=== PATIENT | female | born 1985 | race Two or more races ===

== ENCOUNTER 2019-10-28 14:06 | Observation (INO) | payer MEDICAID ==
[2019-10-28] MEDS ORDERED: PREN-96 PO (15:07)
== END 2019-10-28 15:30 | disposition home or self-care (01) | DRG 566 ==
LOC: LDRP 14:06
PROVIDERS: ADMIT Obstetrics & Gynecology; ATTEND Obstetrics & Gynecology
DX: O26.892 Other specified pregnancy related conditions, second trimester (principal); R10.2 Pelvic and perineal pain; Z3A.23 23 weeks gestation of pregnancy
CPT/HCPCS: 81002; G0378

== ENCOUNTER 2020-01-21 15:51 | Observation (INO) | payer MEDICAID ==
[~2020-01-21] VITALS: Ht 152.4 cm; Wt 73.5 kg
[~2020-01-21 15:51] MED LIST: PREN-96 PO
[2020-01-21] MEDS ORDERED: LACTATED RINGER'S 1,000 ML IV SCH (16:22)
[2020-01-21] MEDS ORDERED: TERBUTALINE SULFATE 1 MG/ML 1ML VIAL SC ONE (16:33)
[2020-01-21] MEDS: TERBUTALINE SULFATE 1 MG/ML 1ML VIAL SC SCH ×2 (16:35→18:52)
[2020-01-21] MEDS ORDERED: BETAMETHASONE ACET (6MG/ML) 5ML VIAL IM ONE (17:00)
[2020-01-22] MEDS ORDERED: BETAMETHASONE ACET (6MG/ML) 5ML VIAL IM SCH (10:00)
== END 2020-01-21 19:43 | disposition home or self-care (01) ==
LOC: LDRP 15:51
PROVIDERS: ADMIT Specialist; ATTEND Specialist
DX: O26.893 Other specified pregnancy related conditions, third trimester (principal); R10.2 Pelvic and perineal pain; M54.9 Dorsalgia, unspecified; O62.9 Abnormality of forces of labor, unspecified; Z3A.35 35 weeks gestation of pregnancy
CPT/HCPCS: 59025; 76818; 81002; 96360; 96361; 96372; G0378; J0702; J3105

== ENCOUNTER 2020-01-22 16:05 | Observation (INO) | payer MEDICAID ==
[2020-01-22] MEDS ORDERED: BETAMETHASONE ACET (6MG/ML) 5ML VIAL IM ONE (16:15)
== END 2020-01-22 17:06 | disposition home or self-care (01) ==
LOC: LDRP 16:05
PROVIDERS: ADMIT Specialist; ATTEND Specialist
DX: O60.03 Preterm labor without delivery, third trimester (principal); Z3A.36 36 weeks gestation of pregnancy
CPT/HCPCS: 59025; 81002; 96372; G0378; J0702

== ENCOUNTER 2020-01-27 11:07 | Observation (INO) | payer MEDICAID | END 2020-01-27 13:40 | disposition home or self-care (01) | LOC: LDRP 11:07 | PROVIDERS: ADMIT Specialist; ATTEND Specialist | DX: O60.03 Preterm labor without delivery, third trimester (principal); O30.003 Twin pregnancy, unspecified number of placenta and unspecified number of amniotic sacs, third trimester; Z3A.36 36 weeks gestation of pregnancy | CPT/HCPCS: 59025; 76818; 81002; G0378 ==

== ENCOUNTER 2020-01-28 10:22 | Observation (INO) | payer MEDICAID | END 2020-01-28 11:53 | disposition home or self-care (01) | LOC: LDRP 10:22 | PROVIDERS: ADMIT Specialist; ATTEND Specialist | DX: O60.03 Preterm labor without delivery, third trimester (principal); O62.9 Abnormality of forces of labor, unspecified; Z3A.36 36 weeks gestation of pregnancy | CPT/HCPCS: 59025; 76818; 81002; G0378 ==

== ENCOUNTER 2020-02-06 17:15 | Observation (INO) | payer MEDICAID ==
[2020-02-06] MEDS ORDERED: LACTATED RINGER'S 1,000 ML IV ONE ×2 (18:30→20:15)
[2020-02-06] MEDS ORDERED: LACTATED RINGER'S 1,000 ML IV SCH (20:45)
[2020-02-06] MEDS ORDERED: ALUM & MAG HYDROX-SIMETH LIQ(MAALOX) 30 ML PO PRN (20:45)
[2020-02-06] MEDS ORDERED: MILK OF MAGNESIA 30ML SUSP PO ONE (20:58)
[2020-02-06] MEDS ORDERED: MILK OF MAGNESIA 30ML SUSP PO PRN (21:00)
== END 2020-02-07 04:50 | disposition home or self-care (01) ==
LOC: LDRP 17:15
PROVIDERS: ADMIT Specialist; ATTEND Specialist
DX: O62.9 Abnormality of forces of labor, unspecified (principal); N89.8 Other specified noninflammatory disorders of vagina; R10.9 Unspecified abdominal pain; M54.9 Dorsalgia, unspecified; Z3A.38 38 weeks gestation of pregnancy
CPT/HCPCS: 59025; 81002; 96360; 96361; G0378

== ENCOUNTER 2020-02-09 10:10 | Outpatient (CLI) | payer MEDICAID | END 2020-02-09 10:38 | disposition home or self-care (01) | LOC: LDRP 10:10 → OB 10:10 → UNDOADMOB 10:10 → OB 10:38 → UNDODISOB 10:38 → EDSTATUS 02-15 14:23 | PROVIDERS: ATTEND Obstetrics & Gynecology | DX: Z20.828 Contact with and (suspected) exposure to other viral communicable diseases (principal) | CPT/HCPCS: G0378 ==

== ENCOUNTER 2020-02-14 04:13 | Inpatient (IN) | payer MEDICAID ==
[~2020-02-14] VITALS: Ht 152.4 cm; Wt 73.5 kg
[2020-02-14] VITALS (13 sets, daily range): BP systolic 111–142; BP diastolic 60–83
[2020-02-14] MEDS ORDERED: LACTATED RINGER'S 1,000 ML IV SCH (04:20)
[2020-02-14] MEDS ORDERED: LACTATED RINGER'S 1,000 ML IV ONE (04:20)
[2020-02-14 05:50] LABS: Basophils # (auto) 0 10 ^3/uL (0-0.2); Basophils % (auto) 0.3 % (0.0-2.0); Eosinophils # (auto) 0.1 10 ^3/uL (0-0.8); Eosinophils % (auto) 0.7 % (0.0-7.0); Hematocrit 36.4 % (36.0-46.0); Lymphocytes # (auto) 2.2 10 ^3/uL (0.4-5.4); Lymphocytes % (auto) 32.1 % (10.0-50.0); Mean Corpuscular Hemoglobin 29.8 pg (28.0-32.0); Mean Corpuscular Hgb Conc. 32.9 g/dL (32.0-36.0); Mean Corpuscular Volume 90.6 fL (80.0-100.0); Monocytes # (auto) 0.5 10 ^3/uL (0-1.3); Monocytes % (auto) 7.1 % (0.0-12.0); Neutrophils # (auto) 4.1 10 ^3/uL (1.6-8.6); Neutrophils % (auto) 59.8 % (37.0-80.0); Nucleated Red Blood Cells % 0.2 %; Platelet Count (auto) 153 10^3/uL (140-450); Red Blood Cells 4.02 10^6/uL (4.0-5.20); Red Cell Distribution Width 14.6 % (11.8-14.3); White Blood Cell 6.9 10^3/uL (4.4-10.8)
[2020-02-14 05:50] LABS: Urine Bacteria FEW /hpf (None Seen); Urine Blood Negative /uL (Negative); Urine Mucus FEW (None Seen); Urine Specific Gravity 1.014 (1.001-1.035); Urine WBC 41 /hpf (0 - 5)
[2020-02-14 06:08] LABS: Potassium 3.9 mmol/L (3.5-5.1)
[2020-02-14 06:19] LABS: Alcohol, Urine < 3.0 mg/dL (0-10); Amphetamine Screen, Urine NEGATIVE (NEGATIVE); Barbiturate Scree,Urine NEGATIVE (NEGATIVE); Benzodiazephine Screen, Urine NEGATIVE (NEGATIVE); Cannabinoid Screen, Urine NEGATIVE (NEGATIVE); Cocaine Screen, Urine NEGATIVE (NEGATIVE); Opiate Scree,Urine NEGATIVE (NEGATIVE); Phencyclidine Screen, Urine NEGATIVE (NEGATIVE)
[2020-02-14 06:19] LABS: Albumin 2.4 g/dL (3.4-5.0); BUN/Creatinine Ratio 13.7; Bilirubin, Total 0.3 mg/dL (0.2-1.0); Calcium 8.9 mg/dL (8.5-10.1)
[2020-02-14 06:26] LABS: INR 0.98 (0.9-1.15); Partial Thromboplastin Time 29.9 sec (23.0-31.2)
[2020-02-14] MEDS ORDERED: LIDOCAINE 1% HCL (LOCAL ANESTH.) INJ 20ML MDV ONE (07:03)
[2020-02-14] MEDS ORDERED: SUCCINYLCHOLINE CHLORIDE 20 MG/ML 10ML VIAL IV ONE (07:03)
[2020-02-14] MEDS ORDERED: TETRACAINE 1% INJ 2 ML VIAL IJ ONE ×2 (07:03→07:08)
[2020-02-14] MEDS ORDERED: MORPHINE SULF(PF) 0.5MG/ML 10ML VIAL ONE (07:06)
[2020-02-14] MEDS ORDERED: BUPIVACAINE/DEXTROSE MPF 0.75% 2 ML AMP IT ONE (07:06)
[2020-02-14] MEDS ORDERED: ONDANSETRON HCL 4 MG/2 ML VIAL ONE (07:06)
[2020-02-14] MEDS ORDERED: MIDAZOLAM HCL 1MG/1ML-2 ML VIAL ONE (07:06)
[2020-02-14] MEDS ORDERED: SODIUM CHLORIDE LOCK 10 ML ONE (07:06)
[2020-02-14] MEDS ORDERED: oxyTOCIN 10 UNIT/ML 10ML VIAL ONE (07:06)
[2020-02-14] MEDS ORDERED: fentaNYL CITRATE 100 MCG/2 ML VL ONE (07:06)
[2020-02-14] MEDS ORDERED: EPINEPHrine HCL 1 MG/1 ML AMP ONE (07:06)
[2020-02-14] MEDS ORDERED: ceFAZolin 1GM VL ONE (07:06)
[2020-02-14] MEDS ORDERED: GUM (CHEWING) 1 GUM CHEW CHEW ONE (09:15)
[2020-02-14] MEDS ORDERED: RHO (D) IMMUNE GLOBULIN 300 MCG INJ IM ONE (09:15)
[2020-02-14] MEDS ORDERED: ceFAZolin 1GM/50ML 50 ML IV SCH (09:15)
[2020-02-14] MEDS ORDERED: ACETAMINOPHEN IV 1000 MG/100ML (10MG/ML) IV PRN (09:15)
[2020-02-14] MEDS ORDERED: HYDROmorphone HCL 2 MG/ML VL IV PRN ×2 (09:15→09:30)
[2020-02-14] MEDS ORDERED: ONDANSETRON HCL 4 MG/2 ML VIAL IV PRN ×2 (09:15→09:30)
[2020-02-14] MEDS ORDERED: NALOXONE HCL 0.4 MG/ML VIAL IV PRN (09:30)
[2020-02-14] MEDS ORDERED: METOCLOPRAMIDE HCL 5MG/ml INJ 2ml VIAL IV PRN (09:30)
[2020-02-14] MEDS ORDERED: KETOROLAC TROMETH 30 MG/ML 1ML VIAL IV ONE (09:30)
[2020-02-14] MEDS ORDERED: MORPHINE SULFATE 4 MG/ML SYR/VIAL IV PRN (09:30)
--- NOTE | 2020-02-14 10:00 | NUR ---
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 Fundus firm 1 above u moderate bleeding with small clots noted, incision dry and intact. Vital signs within normal limits will continue to monitor.
[2020-02-14] MEDS: KETOROLAC TROMETH 30 MG/ML 1ML VIAL IV PRN (15:24)
[2020-02-14] MEDS: LACTATED RINGER'S 1,000 ML IV SCH ×3 (15:29→20:00)
[2020-02-14] MEDS: ceFAZolin 1GM/50ML 50 ML IV SCH (16:14)
--- NOTE | 2020-02-14 19:00 | NUR ---
Teaching: Reviewed information in [facility] booklet with patient. Discussed benefits of and risks associated with not . Discussed different positions, proper latch, feeding cues, and baby-led . Provided information of medication side effects related to . All questions and concerns addressed at this time. Patient verbalized understanding of information.
--- NOTE | 2020-02-14 23:00 | NUR ---
Ambulation of patient to bedside chair: Clean gown and Pericare in bed with teaching provided. Amin catheter remains intact no kinks, hung below bladder, draining yellow urine . Active bowel sounds. ABD incision dressing removed, chidi remain intact. Incision site with no redness edema or draining, slight moisture, cool to touch peripad placed over incision supported with underwear, reapplied ABD binder. Fundus firm at U with small amount of bleeding. Patient out of bed with standby assistance by RN x2 to bedside chair. Complete linen changed. Ice chips provided. Educated patient about S/S of PPH and to call for assistance, patient verbalized understanding. Patient remains in chair, call light within reach no S/S of distress.
[2020-02-15] MEDS: ceFAZolin 1GM/50ML 50 ML IV SCH ×2 (00:30→08:25)
[2020-02-15] MEDS: KETOROLAC TROMETH 30 MG/ML 1ML VIAL IV PRN (02:59)
[2020-02-15 03:00] VITALS: BP 116/75
[2020-02-15 04:08] LABS: RPR Non Reactive (Non Reactive)
--- NOTE | 2020-02-15 05:20 | NUR ---
Cortez catheter dc'd Order to discontinue cortez catheter. Cortez dc'd with clean technique following deflation of balloon. Patient tolerated well with no complaints of pain. Continue care.
[2020-02-15 06:48] LABS: Basophils # (auto) 0 10 ^3/uL (0-0.2); Basophils % (auto) 0.1 % (0.0-2.0); Eosinophils # (auto) 0.1 10 ^3/uL (0-0.8); Eosinophils % (auto) 1.1 % (0.0-7.0); Hemoglobin 10.6 g/dL (12.2-16.2); Lymphocytes # (auto) 1.3 10 ^3/uL (0.4-5.4); Lymphocytes % (auto) 17.3 % (10.0-50.0); Mean Corpuscular Hemoglobin 29.9 pg (28.0-32.0); Mean Corpuscular Hgb Conc. 33.1 g/dL (32.0-36.0); Mean Corpuscular Volume 90.4 fL (80.0-100.0); Monocytes # (auto) 0.4 10 ^3/uL (0-1.3); Monocytes % (auto) 5.6 % (0.0-12.0); Neutrophils # (auto) 5.9 10 ^3/uL (1.6-8.6); Neutrophils % (auto) 75.9 % (37.0-80.0); Nucleated Red Blood Cells % 0.2 %; Platelet Count (auto) 151 10^3/uL (140-450); Red Blood Cells 3.54 10^6/uL (4.0-5.20); Red Cell Distribution Width 14.7 % (11.8-14.3); White Blood Cell 7.7 10^3/uL (4.4-10.8)
[2020-02-15 06:50] VITALS: BP 118/76
[2020-02-15] MEDS ORDERED: HYDROcodone-ACET 5/325MG TAB PO PRN (07:30)
[2020-02-15] MEDS ORDERED: BISACODYL 10 MG RECT SUPP PR PRN (07:30)
[2020-02-15] MEDS: IBUPROFEN 800 MG TAB PO PRN ×2 (08:31→16:30)
[2020-02-15] MEDS: LACTATED RINGER'S 1,000 ML IV SCH (09:04)
[2020-02-15] MEDS: DOCUSATE SOD 100 MG CAP PO SCH ×2 (09:30→22:57)
[2020-02-15] MEDS ORDERED: DOCUSATE CALCIUM 240 MG CAP PO SCH (10:00)
[2020-02-15 10:30] VITALS: BP 116/73
[2020-02-15] MEDS: SIMETHICONE 80 MG CHEWABLE TABLET PO SCH ×3 (11:44→22:57)
[2020-02-15] MEDS: HYDROcodone-ACET 5/325MG TAB PO PRN ×2 (11:46→22:56)
[2020-02-15 15:30] VITALS: BP 117/68
[2020-02-15 19:15] VITALS: BP 118/79
[2020-02-15 22:59] VITALS: BP 113/63
[2020-02-16 03:00] VITALS: BP 108/89
[2020-02-16] MEDS: IBUPROFEN 800 MG TAB PO PRN ×3 (03:30→19:18)
[2020-02-16] MEDS: SIMETHICONE 80 MG CHEWABLE TABLET PO SCH ×4 (06:15→22:26)
[2020-02-16 07:00] VITALS: BP 114/65
[2020-02-16] MEDS: HYDROcodone-ACET 5/325MG TAB PO PRN ×2 (09:46→17:48)
[2020-02-16] MEDS: DOCUSATE SOD 100 MG CAP PO SCH ×2 (09:47→22:26)
[2020-02-16 11:00] VITALS: BP 121/72
[2020-02-16 15:00] VITALS: BP 107/61
--- NOTE | 2020-02-16 15:09 | NUR ---
IV removal IV DC'd in right hand with clean sterile technique, catheter fully intact. Pressure dressing applied to site. Patient tolerated well. NOTE:
[2020-02-16 23:00] VITALS: BP 111/66
--- NOTE | 2020-02-17 02:25 | NUR ---
Pt had a bowel movement moderate amount soft. Addendum: 02/17/20 at 0231 by BORIS BOBBY RN RN Amended: Links added.
[2020-02-17] MEDS: HYDROcodone-ACET 5/325MG TAB PO PRN (02:53)
[2020-02-17 03:00] VITALS: BP 127/72
[2020-02-17] MEDS: IBUPROFEN 800 MG TAB PO PRN (05:53)
[2020-02-17] MEDS: SIMETHICONE 80 MG CHEWABLE TABLET PO SCH (06:15)
[2020-02-17 07:15] VITALS: BP 121/73
[2020-02-17] MEDS: DOCUSATE SOD 100 MG CAP PO SCH (09:33)
[2020-02-17 11:00] VITALS: BP 109/74
--- NOTE | 2020-02-17 11:00 | NUR ---
Discharge: Discharge instructions given as ordered. Maternal Mental Health, "Save a Life" AWHON sheet provided. Pt encouraged to follow up with DATA WAREHOUSING ARCHITECT as instructed. All questions and concerns addressed. Patient verbalized understanding. Medication reconciliation completed and copy given to patient. All required/requested vaccines given and copies of vaccinations given to patient. Patient encouraged to prepare to depart unit.
--- NOTE | 2020-02-17 11:55 | NUR ---
Discharge: Patient ambulated to vehicle with all personal belongings, accompanied by staff and family member. No distress noted at time of departure, no adverse changes in status since initial assessment.
== END 2020-02-17 11:55 | disposition home or self-care (01) | DRG 540 ==
LOC: LDRP 04:13
PROVIDERS: ADMIT Obstetrics & Gynecology; ATTEND Obstetrics & Gynecology
PROC: 0UL70CZ Occlusion of Bilateral Fallopian Tubes with Extraluminal Device, Open Approach (ICD-10-PCS; 2020-02-14)
PROC: 10D00Z1 Extraction of Products of Conception, Low, Open Approach (ICD-10-PCS; principal; 2020-02-14 07:45)
PROC: 3E0234Z Introduction of Serum, Toxoid and Vaccine into Muscle, Percutaneous Approach (ICD-10-PCS; 2020-02-15)
DX: O34.211 Maternal care for low transverse scar from previous cesarean delivery (principal); Z3A.39 39 weeks gestation of pregnancy; Z37.0 Single live birth; Z30.2 Encounter for sterilization; R71.0 Precipitous drop in hematocrit; O26.893 Other specified pregnancy related conditions, third trimester; Z67.91 Unspecified blood type, Rh negative
CPT/HCPCS: 36415; 59025; 80053; 80307; 81001; 85025; 85610; 85730; 86592; 86850; 86900; 86901; 90384; 94762; 96360; 96361; 96372; 96374; 96375; G0378; J0131; J0171; J0330; J0690; J1885; J2001; J2250; J2405; J2590

== ENCOUNTER 2024-11-19 17:53 | Emergency (ER) | payer MEDICAID ==
[~2024-11-19] VITALS: Ht 152.4 cm; Wt 72.7 kg
[2024-11-19 18:26] LABS: Urine Bacteria None Seen /hpf (None Seen)
--- NOTE | 2024-11-19 18:28 | ED.PDOC ---
General HPI Comments 39-year-old female came to ER for flank pains. Patient states for the past 2 days she has been having left lower quadrant, left flank, and lower back pains, associated burning in urination. Denies any fever nausea or vomiting. Denies any gross hematuria. Denies any possibility of . Chief Complaint: Flank Pain Time Seen by MD: 18:26 Reviewed notes: Nurses Notes Allergies: Coded Allergies: NO KNOWN ALLERGIES (Unverified , 01/21/20) Home Meds Active Scripts Acetaminophen (Acetaminophen Er) 650 Mg Tab, 650 MG PO TIDPRN PRN for 5 Days, #15 TAB Prov:SUSANA HOWARD MD 11/19/24 Ketorolac Tromethamine (Ketorolac Tromethamine) 10 Mg Tab, 1 TAB PO TID, #15 TAB Prov:SUSANA HOWARD MD 11/19/24 Reported Medications Vit W/ Ferrous Fumara ( One Daily) Daily Tab, 1 TAB PO DAILY, #90 TAB 3 Refills 10/28/19 Information Source: Patient Mode of Arrival: Ambulatory Severity: Moderate Inability to void: Moderate Timing: Hours Duration: Since onset Prehospital treatment: None Onset: Spontaneous Symptoms: Dysuria History of: UTI Location: (L)Flank Modifying factors: None associated signs and symptoms: Abdominal Pain, Flank Pain, Back Pain, Dysuria Review of Systems REVIEW OF SYSTEMS: No fever, no chills, or fatigue HEENT: No sore throat, no earache, no congestion, no neck pain. Cardiac: No chest pain. No palpitations. Lungs: No shortness of breath, no cough. GI: No nausea, no vomiting, no diarrhea, no constipation, (+) abdominal pain : (+) dysuria, frequency, or urgency. No hematuria. (+) left flank pain Musculoskeletal: No joint pain , no joint swelling, no extremity edema. Skin: No rash, no itching. Neuro: No headache, no dizziness, no weakness Vital Signs Vital Signs Date Time Temp Pulse Resp B/P (MAP) Pulse Ox O2 Delivery O2 Flow Rate FiO2 11/19/24 21:54 98.4 63 16 123/66 (85) 98 98.4 11/19/24 20:56 Room Air Physical Exam General: Awake, alert and oriented. No acute distress. Skin: Skin in warm, dry and intact. Appropriate color for ethnicity. Nailbeds pink with no cyanosis. HEENT: The head is normocephalic and atraumatic. Conjunctivae are clear without exudates or hemorrhage. Sclera is non-icteric. EOM are intact. No signs of nystagmus. Eyelids are normal in appearance without swelling or lesions. Oral mucosa is pink and moist Neck: The neck is supple with normal range of motion. No JVD. Cardiac: Heart rate and rhythm are normal. No murmurs, gallops, or rubs are auscultated. Respiratory: No signs of respiratory distress. Lung sounds are clear in all lobes bilaterally without rales, rhonchi, or wheezes. Abdominal: Abdomen is soft, positive left flank tenderness. No guarding, rigidity.. Bowel sounds are present and normoactive in all four quadrants. No CVA tenderness. Extremities: Upper and lower extremities are atraumatic in appearance without deformity or edema. Neurological: The patient is awake, alert and oriented to person, place, and time with normal speech. Speech is clear. There is no facial asymmetry. Psychiatric: Appropriate mood and affect. Good judgement and insight. 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 Was a procedure done?: No Differential Diagnosis Kidney stone (Female): Pyelonephritis, Renal failure, Strain, Urinary obstruction, Urolithiasis Urinary Problem (Female): Pyelonephritis, Urinary retention, Urolithiasis, UTI X-Ray, Labs, Meds, VS Vital Signs Date Time Temp Pulse Resp B/P (MAP) Pulse Ox O2 Delivery O2 Flow Rate FiO2 11/19/24 21:54 98.4 63 16 123/66 (85) 98 98.4 11/19/24 20:56 77 18 97 Room Air 11/19/24 20:55 98.7 77 18 127/67 (87) 97 98.7 11/19/24 20:11 97.4 60 18 123/60 (81) 97 97.4 11/19/24 20:11 60 18 97 Room Air 11/19/24 18:08 97.9 78 18 129/64 (85) 98 97.9 Lab Test 11/19/24 18:13 Range/Units Urine Color Light-yellow Yellow Urine Clarity Clear Clear Urine pH 6.5 5.0-9.0 Urine Specific [place] 1.016 1.001-1.035 Urine Protein Negative Negative Urine Ketones 1+ H Negative Urine Blood 1+ H Negative /uL Urine Nitrite Negative Negative Urine Bilirubin Negative Negative Urine Urobilinogen Normal Negative mg/dL Urine Leukocyte Esterase Negative Negative /uL Urine RBC 12 0 - 4 /hpf Urine Microscopic WBC 1 0-5 /HPF Urine Squamous Epithelial Cells Few <5 /hpf Urine Amorphous Crystals Few None Seen /hpf Urine Bacteria None seen None Seen /hpf Urine Glucose Normal Normal mg/dL Urine Test Negative Negative Current Medications Medications (Trade) Dose Ordered Sig/Tania Route Start Time Stop Time Status Last Admin Ketorolac Tromethamine (Toradol Injection) 45 mg ONCE ONCE IM 11/19/24 18:30 11/19/24 18:31 DC 11/19/24 20:54 Acetaminophen (Tylenol Tablet Or Capsule) 1,000 mg ONCE ONCE PO 11/19/24 18:30 11/19/24 18:31 DC 11/19/24 20:53 Sodium Chloride 1,000 ml @ 1,000 mls/hr Q1H ONCE IV 11/19/24 19:45 11/19/24 20:44 DC 11/19/24 20:53 Exam: CT CT AB PEL WO CON-NO ORAL OR IV History: Left flank pain Comparison Study: None TECHNIQUE: Multidetector CT of the abdomen and pelvis was performed from lung bases to pubic symphysis. Imaging was performed without IV contrast. Axial, coronal, and sagittal multiplanar reformats were obtained from the axial data set by the technologist. RADIATION DOSE: DLP 510.99 mGy.cm; CTDI vol 9.2 mGy. Findings: Limited evaluation of the solid organs in the absence of IV contrast. Liver: Unremarkable. Spleen: Unremarkable. Pancreas: Unremarkable. Gallbladder: Unremarkable. Adrenals: Unremarkable Kidneys: There is mild left hydroureteronephrosis. The distal left ureter is difficult to visualize. There are scattered pelvic phleboliths. There is a calcification within the left pelvis which may be within the distal left ureter, though difficult to assess, measuring 3 mm and possibly reflecting a ureteral calculus. There is mild left perinephric stranding. Pelvic Viscera: Calcifications versus surgical clips seen within the pelvis, clinical correlation suggested. The bladder is unremarkable. Vasculature: Unremarkable. Retroperitoneum: Unremarkable. Bowel: No bowel obstruction. The appendix is normal. Musculoskeletal: Unremarkable. Soft tissues: Unremarkable Lungs: The lung bases are clear. Impression: 1. Mild left hydroureteronephrosisMild. The distal left ureter is difficult to visualize. There are scattered pelvic phleboliths, and a calcification in the pelvis measures up to 3 mm, not definitively though possibly within the ureter. There is left perinephric stranding, which may be referable to calculus/recently passed calculus with infectious/inflammatory process not excluded. Further clinical correlation is suggested. 2. Additional findings as detailed. Time of 1ST Reevaluation: 20:43 Reevaluation 1ST: Unchanged Patient Education/Counseling: Need For Follow Up Family Education/Counseling: Other SEPSIS Sepsis Screen Physician Orders Ct Ab Pel Wo Con-No Oral Or Iv (11/19/24 19:31) Vital Signs Date Time Temp Pulse Resp B/P (MAP) Pulse Ox O2 Delivery O2 Flow Rate FiO2 11/19/24 21:54 98.4 63 16 123/66 (85) 98 98.4 11/19/24 20:56 77 18 97 Room Air 11/19/24 20:55 98.7 77 18 127/67 (87) 97 98.7 11/19/24 20:11 97.4 60 18 123/60 (81) 97 97.4 11/19/24 20:11 60 18 97 Room Air 11/19/24 18:08 97.9 78 18 129/64 (85) 98 97.9 Medications Medications Dose Ordered Sig/Tania Route Start Time Stop Time Status Last Admin Dose Admin Acetaminophen 1,000 mg ONCE ONCE PO 11/19/24 18:30 11/19/24 18:31 DC 11/19/24 20:53 Ketorolac Tromethamine 45 mg ONCE ONCE IM 11/19/24 18:30 11/19/24 18:31 DC 11/19/24 20:54 Sodium Chloride 1,000 ml @ 1,000 mls/hr Q1H ONCE IV 11/19/24 19:45 11/19/24 20:44 DC 11/19/24 20:53 Departure 1 Departure Time of Disposition: 21:50 Impression: Primary Impression: Flank pain Additional Impression: Hydronephrosis Disposition: HOME / SELF CARE / HOMELESS Condition: Stable Additional Instructions: ED DISCHARGE INSTRUCTIONS Instructions: Please read all instructions provided in this packet carefully. Although you have been discharged from the Emergency Department, this does not mean that you have a "clean bill of health". No definitive diagnosis for your symptoms has been made today. It is possible that you are in the process of developing a serious illness. This is why you must return to the ED without fail if any new or worsening symptoms (especially if your symptoms include chest pain, trouble breathing, abdominal pain, fever, headache, confusion, trouble seeing, or trouble walking) It is also very important that you see a primary care doctor within the next 3-5 days to follow up. If you are unable to get an appointment, return to the ED for re-evaluation. A copy of your CAT scan results is included below.: Abdominal Pain: Care Instructions Overview Abdominal pain has many possible causes. Some aren't serious and get better on their own in a few days. Others need more testing and treatment. If your pain continues or gets worse, you need to be rechecked and may need more tests to f ind out what is wrong. You may need surgery to correct the problem. Don't ignore new symptoms, such as fever, nausea and vomiting, urination problems, pain that gets worse, and dizziness. These may be signs of a more serious problem. If you are not getting better, you may need more tests or treatment. The doctor has checked you carefully, but problems can develop later. If you no parminder any problems or new symptoms, get medical treatment right away. Follow-up care is a lares part of your treatment and safety. Be sure to make and go to all appointments, and call your doctor if you are having problems. It's also a good idea to know your test results and keep a list of the medicines you take. How can you care for yourself at home? Rest until you feel better. To prevent dehydration, drink plenty of fluids. Choose water and other clear liquids until you feel better. If you have kidney, heart, or liver disease and have to limit fluids, talk with your doctor before you increase the amount of fluids you drink. When you feel like eating, start with small amounts. Do not have alcohol, caffeine, or spicy, hot, or high-fat foods for a day or two. Avoid anti-inflammatory medicines such as aspirin, ibuprofen (Advil, Motrin), and naproxen (Aleve). These can cause stomach upset. Talk to your doctor if you take daily aspirin for another health problem. When should you call for help? Call 911 anytime you think you may need emergency care. For example, call if: You passed out (lost consciousness). You pass maroon or very bloody stools. You vomit blood or what looks like coffee grounds. You have severe belly pain. Call your doctor now or seek immediate medical care if: Your pain gets worse, especially if it becomes focused in one area of your belly. You have a new or higher fever. Your stools are black and look like tar, or they have streaks of blood. You have unexpected vaginal bleeding. You have symptoms of a urinary tract infection. These may include: Pain when you urinate. Urinating more often than usual. Blood in your urine. You are dizzy or lightheaded, or you feel like you may faint. Watch closely for changes in your health, and be sure to contact your doctor if: You are not getting better as expected. Credits for Abdominal Pain: Care Instructions Current as of: March 20, 2023 Author: [email or web address] Staff Clinical Review Board [employer] education is reviewed by a team that includes physicians, nurses, advanced practitioners, registered dieticians, and other healthcare professionals. Exam: CT CT AB PEL WO CON-NO ORAL OR IV History: Left flank pain Comparison Study: None TECHNIQUE: Multidetector CT of the abdomen and pelvis was performed from lung bases to pubic symphysis. Imaging was performed without IV contrast. Axial, coronal, and sagittal multiplanar reformats were obtained from the axial data set by the technologist. RADIATION DOSE: DLP 510.99 mGy.cm; CTDI vol 9.2 mGy. Findings: Limited evaluation of the solid organs in the absence of IV contrast. Liver: Unremarkable. Spleen: Unremarkable. Pancreas: Unremarkable. Gallbladder: Unremarkable. Adrenals: Unremarkable Kidneys: There is mild left hydroureteronephrosis. The distal left ureter is difficult to visualize. There are scattered pelvic phleboliths. There is a calcification within the left pelvis which may be within the distal left ureter, though difficult to assess, measuring 3 mm and possibly reflecting a ureteral calculus. There is mild left perinephric stranding. Pelvic Viscera: Calcifications versus surgical clips seen within the pelvis, clinical correlation suggested. The bladder is unremarkable. Vasculature: Unremarkable. Retroperitoneum: Unremarkable. Bowel: No bowel obstruction. The appendix is normal. Musculoskeletal: Unremarkable. Soft tissues: Unremarkable Lungs: The lung bases are clear. Impression: 1. Mild left hydroureteronephrosisMild. The distal left ureter is difficult to visualize. There are scattered pelvic phleboliths, and a calcification in the pelvis measures up to 3 mm, not definitively though possibly within the ureter. There is left perinephric stranding, which may be referable to calculus/recently passed calculus with infectious/inflammatory process not excluded. Further clinical correlation is suggested. 2. Additional findings as detailed. e-Prescriptions Acetaminophen (Acetaminophen Er) 650 Mg Tab 650 MG PO TIDPRN PRN for 5 Days, #15 TAB Prov: SUSANA HOWARD MD 11/19/24 Ketorolac Tromethamine (Ketorolac Tromethamine) 10 Mg Tab 1 TAB PO TID, #15 TAB Prov: SUSANA HOWARD MD 11/19/24 Comments Patient reports improvement of symptoms during the ED observation. Patient well-appearing, nontoxic. She is felt stable for discharge home. Advised prompt follow-up with PCP, return to the ED with any new, worsening or concerning symptoms. - I reviewed the following notes from the pt's past medical encounters: N/A The following tests were ordered, and results were reviewed by me: (See diagnostic results section) The following test were independently interpreted by me: N/A Additional information was gathered from interviewing the following independent historians: N/A I reviewed and agreed with the following test results read by other providers: N/A I discussed treatments and results with patient Decision regarding hospitalization or escalation of hospital level of care: Risks and benefits of admission for further treatment of patient's condition was considered however due to patient's stable condition patient will be discharged to follow up closely or return to care for worsening of condition or inability to follow up. Critical Care Note Critical Care Time?: No Stability Stability form required: No Heart Score Heart Score: Heart Score Response (Comments) Value History N/A 0 EKG N/A 0 Age N/A 0 Risk Factors N/A 0 Troponin N/A 0 Total 0 I personally scribed for SUSANA HOWARD MD ([email or web address]) on 11/19/24 at 18:28. Electronically submitted by Duane Gonzalez ([email or web address]). I personally scribed for SUSANA HOWARD MD ([email or web address]) on 11/19/24 at 18:52. Electronically submitted by Duane Gonzalez ([email or web address]). I personally scribed for SUSANA HOWARD MD ([email or web address]) on 11/19/24 at 20:43. Electronically submitted by Duane Gonzalez ([email or web address]). SUSANA HOWARD MD Nov 19, 2024 18:28
[2024-11-19 18:53] LABS: Urine Amorphous Crystal FEW /hpf (None Seen); Urine Blood 1+ /uL (Negative); Urine Clarity Clear (Clear); Urine Color Light-Yellow (Yellow); Urine Protein, UAD Negative (Negative); Urine Specific Gravity 1.016 (1.001-1.035); Urine Squamous Epithelial Cell FEW /hpf (<5); Urine Urobilinogen Normal (Negative); Urine WBC 1 /HPF (0-5); Urine pH 6.5 (5.0-9.0)
--- NOTE | 2024-11-19 20:40 | DVH ---
Exam: CT CT AB PEL WO CON-NO ORAL OR IV History: Left flank pain Comparison Study: None TECHNIQUE: Multidetector CT of the abdomen and pelvis was performed from lung bases to pubic symphysi s. Imaging was performed without IV contrast. Axial, coronal, and sagittal multiplanar reformats were obtained from the axial data set by the technologist. RADIATION DOSE: DLP 510.99 mGy.cm; CTDI vol 9.2 mGy. Findings: Limited evaluation of the solid organs in the absence of IV contrast. Liver: Unremarkable. Spleen: Unremarkable. Pancreas: Unremarkable. Gallbladder: Unremarkable. Adrenals: Unremarkable Kidneys: There is mild left hydroureteronephrosis. The distal left ureter is difficult to visualize. There are scattered pelvic phleboliths. There is a calcification within the left pelvis which may be within the distal left ureter, though difficult to assess, measuring 3 mm and possibly reflecting a ureteral calculus. There is mild left perinephric stranding. Pelvic Viscera: Calcifications versus surgical clips seen within the pelvis, clinical correlation sug gested. The bladder is unremarkable. Vasculature: Unremarkable. Retroperitoneum: Unremarkable. Bowel: No bowel obstruction. The appendix is normal. Musculoskeletal: Unremarkable. Soft tissues: Unremarkable Lungs: The lung bases are clear. Impression: 1. Mild left hydroureteronephrosisMild. The distal left ureter is difficult to visualize. There are scattered pelvic phleboliths, and a calcification in the pelvis measures up to 3 mm, not definitivel y though possibly within the ureter. There is left perinephric stranding, which may be referable to c alculus/recently passed calculus with infectious/inflammatory process not excluded. Further clinical correlation is suggested. 2. Additional findings as detailed.
[2024-11-19] MEDS: ACETAMINOPHEN 500 MG TAB or CAP PO ONE (20:53)
[2024-11-19] MEDS: SODIUM CHLORIDE 0.9% 1,000 ML IV ONE (20:53)
[2024-11-19] MEDS: KETOROLAC TROMETH 30 MG/ML 1ML VIAL IM ONE (20:54)
[2024-11-19] MEDS ORDERED: ACET650T12 PO (21:52)
[2024-11-19] MEDS ORDERED: KETO10TA PO (21:52)
[2024-11-19 21:54] VITALS: BP 123/66; PULSE 63; RESP 16; TEMP 98.4; O2SAT 98
== END 2024-11-19 21:57 | disposition home or self-care (01) ==
LOC: ER 17:57
DX: N13.30 Unspecified hydronephrosis (principal); R10.9 Unspecified abdominal pain; Z87.440 Personal history of urinary (tract) infections; Z98.51 Tubal ligation status; Z98.890 Other specified postprocedural states; Z79.899 Other long term (current) drug therapy
CPT/HCPCS: 74176; 81001; 81025; 96360; 96372; 99285; J1885; J7030